=== PATIENT | male | born 1980 | race Caucasian/White ===

== ENCOUNTER → 2016-10-22 | Outpatient (CLI) | payer OTHER ==
--- NOTE | 2016-10-23 08:55 | REP ---
MRI BRAIN WITHOUT AND WITH CONTRAST: HISTORY: Cavum septi pellucidi. CONTRAST: ProHance 20 mL. There are no areas of abnormal signal intensity in the brain. There is no intraparenchymal hemorrhage, infarct, mass or midline shift. There is no abnormal enhancement. 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 The cavum septi pellucidi has a cystic appearance. There is no hydrocephalus. There is no extracerebral collection. A retention cyst is present in the right maxillary sinus. Mucosal thickening is present in the left maxillary sinus. IMPRESSION: There is no intracranial lesion. Signed by Jann Buckley MD 10/23/2016 08:57 A
== END ==
LOC: M RAD 16:58
PROVIDERS: ATTEND Psychiatry & Neurology Child & Adolescent Psychiatry
DX: R94.02 Abnormal brain scan (principal)

== ENCOUNTER → 2016-12-14 | Outpatient (CLI) | payer OTHER ==
--- NOTE | 2016-12-14 07:53 | REP ---
CT Head without contrast HISTORY: Headache COMPARISON: MR 10/22/2016 There is no intraparenchymal hemorrhage, acute infarct, mass or midline shift. The ventricular system is normal in appearance. 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 There is no extra cerebral collection. There is no fracture. The visualized sinuses are clear. IMPRESSION: There is no intracranial lesion. Signed by Jann Buckley MD 12/14/2016 07:45 A
== END ==
LOC: M RAD 06:57
PROVIDERS: ATTEND Psychiatry & Neurology Child & Adolescent Psychiatry
DX: R51 Headache (principal)